=== PATIENT | female | born 1970 | race Caucasian/White ===

== ENCOUNTER 2018-11-23 06:25 | Observation (INO) ==
--- NOTE | 2018-11-17 10:49 | Anesthesiology Consultation ---
Date of Service November 17, 2018 Assessment & Plan (1) Encounter for pre-operative examination: Chart Review Chart Review: Acceptable Risk for Surgery and Patient NOT seen in Pre Admission Testing History Surgery Operation Date: 11/23/18 08:00 Proposed Procedures p A-Flutter with Mapping with Anesthesia - Dina Reese DO Height/Weight Height: 5 ft 9 in Weight: 142.882 kg Allergies Allergy/AdvReac Type Severity Reaction Status Date / Time hydrocodone [From Vicodin] Allergy Severe THROAT Verified 11/17/18 07:58 SWELLING promethazine [From Phenergan] Allergy Unknown Verified 11/17/18 07:58 sulfamethoxazole Allergy Unknown Verified 11/17/18 07:58 [From Bactrim] trimethoprim [From Bactrim] Allergy Unknown Verified 11/17/18 07:58 Medications Home Medications Medication Instructions Recorded Confirmed Last Taken albuterol sulfate [Ventolin HFA] 2 puff INHALATION QID PRN 11/17/18 11/17/18 Unknown aspirin [Aspirin Low Dose] 81 mg PO HS 11/17/18 11/17/18 Unknown atorvastatin [Lipitor] 20 mg PO QAM 11/17/18 11/17/18 Unknown bupropion HCl [Wellbutrin XL] 300 mg PO QAM 11/17/18 11/17/18 Unknown buspirone 5 mg PO BID 11/17/18 11/17/18 Unknown clonazepam [Klonopin] 1 mg PO TID PRN 11/17/18 11/17/18 Unknown fenofibrate micronized 134 mg PO QAM 11/17/18 11/17/18 Unknown lamotrigine [Lamictal] 200 mg PO BID 11/17/18 11/17/18 Unknown levothyroxine 125 mcg PO QAM 11/17/18 11/17/18 Unknown metoprolol tartrate 50 mg PO BID 11/17/18 11/17/18 Unknown milnacipran [Savella] 100 mg PO BID 11/17/18 11/17/18 Unknown mometasone-formoterol [Dulera] 2 puff INHALATION BID 11/17/18 11/17/18 Unknown montelukast [Singulair] 10 mg PO PM 11/17/18 11/17/18 Unknown omeprazole 20 mg PO QAM 11/17/18 11/17/18 Unknown sertraline [Zoloft] 100 mg PO QAM 11/17/18 11/17/18 Unknown topiramate [Topamax] 200 mg PO BID 11/17/18 11/17/18 Unknown trazodone 200 mg PO HS 11/17/18 11/17/18 Unknown ziprasidone HCl 60 mg PO HS 11/17/18 11/17/18 Unknown Past Medical History Medical History Anxiety Asthma Atrial fibrillation A.FIB AND A.FLUTTER Bipolar disorder Bronchitis FREQUENT Chronic back pain Chronic kidney disease STAGE 3 KIDNEY DISEASE. FOLLOWS WITH DR. ISAC SANON Chronic obstructive pulmonary disease Degenerative disc disease Depression Diabetes mellitus, type 2 NO MEDS Fibromyalgia GERD (gastroesophageal reflux disease) History of cardioversion DECEMBER 2017. [facility]. Hyperlipidemia Hypertension Hypothyroidism Kidney stones CURRENT LEFT SIDE Migraine BOTOX SHOTS Morbid obesity Osteoarthritis Peripheral neuropathy BILATERAL FEET Post traumatic stress disorder Sleep apnea NON COMPLIANT WITH CPAP Past Family History Family History Father Family history of diabetes mellitus Past Surgical History Surgical History History of bilateral tubal ligation History of cardiac cath [facility]. NO STENTS, UNSURE OF YEAR. History of cholecystectomy OPEN History of colonoscopy History of dilatation and curettage WITH UTERINE THERMAL ABLATION History of herniorrhaphy INCISIONAL HERNIA REPAIR History of repair of rotator cuff RIGHT Social History Smoking Status: Former smoker tobacco type: cigarettes Do You Dip or Chew Tobacco: No Smoking End Date: QUIT 2011 Hx Alcohol Use: No Hx Substance Use: No Testing Electrocardiogram Date: 10/19/18 Findings: + NSR @ (63) Echocardiogram Date: 01/11/18 EF: 61% Indication: new onset A-flutter. No LV segmental wall motion abnormalities. LV diastolic function is normal. Nondilated cardiac chambers. The right ventricular systolic function is normal. Proximal inferior vena cava is normal. Normal IVC size and collapsibility with sniff indicates a normal right atrial pressure of 3 mmHg. No significant valvular disease is present. No evidence of pulmonary hypertension. Stress Test Date: 11/01/18 Type: nuclear Normal pharmacologic Cardiolite stress test without evidence of infarct or ischemia. Negative pharmacologic stress EKG for ischemia. Normal post stress ejection fraction. Normal wall motion analysis. Laboratory Results 11/08/18 SODIUM: 140 POTASSIUM: 4.0 CHLORIDE: 106 CO2: 21 BUN: 16 CREATININE: 1.40 GLUCOSE: 83
[~2018-11-23 06:25] MED LIST: LR 15ML/HR IV SCH
[2018-11-23] MEDS ORDERED: LIDOCAINE HCL 1% 20 ML VIAL ONE (07:24)
[2018-11-23] MEDS ORDERED: REMIFENTANIL HCL 1 MG VIAL ONE ×2 (07:40→07:41)
[2018-11-23] MEDS ORDERED: PROPOFOL IV EMULSION 10 MG/ML 100 ML VIAL IV ONE (07:41)
--- NOTE | 2018-11-23 07:44 | History & Physical Bridge Note ---
Date of Service November 23, 2018 History & Physical Bridge Note I have examined the patient, reviewed the History & Physical and in the interval since the performance of the History & Physical I have noted the following changes of clinical significance: no changes noted
[2018-11-23] MEDS ORDERED: PROPOFOL IV EMULSION 10 MG/ML 20 ML VIAL IV ONE (07:55)
[2018-11-23] MEDS ORDERED: LIDOCAINE HCL 2% 2 ML VIAL/AMP(20MG/ML) INFIL ONE ×2 (07:55→09:01)
[2018-11-23] MEDS ORDERED: fentaNYL citrate 100 MCG/2 ML VIAL ONE ×2 (07:55)
[2018-11-23] MEDS ORDERED: SUCCINYLCHOLINE CHLORIDE 20 MG/ML 10 ML VIAL ONE (07:55)
[2018-11-23] MEDS ORDERED: MIDAZOLAM HCL 1 MG/ML 2ML VIAL ONE ×2 (07:55→09:10)
[2018-11-23] MEDS ORDERED: ROCURONIUM BROMIDE 10 MG/ML 5 ML VIAL ONE (07:55)
[2018-11-23] MEDS ORDERED: KETAMINE HCL INJ 50 MG/ML 10 ML VIAL ONE (08:13)
[2018-11-23] MEDS ORDERED: ATROPINE SULFATE 0.1 MG/ML 10ML SYR IV PRN (08:23)
[2018-11-23] MEDS ORDERED: ePHEDrine sulfate 50 MG/ML AMP IV PRN (08:23)
[2018-11-23] MEDS ORDERED: HEPARIN SOD (PORCINE) 1000 UNIT/ML 10 ML VIAL ONE (08:33)
[2018-11-23] MEDS ORDERED: PHENYLEPHRINE 100MCG/ML 5ML SYR ONE (09:29)
[2018-11-23] MEDS ORDERED: ePHEDrine sulfate 50 MG/ML SYR ONE (09:29)
--- NOTE | 2018-11-23 10:09 | Operative Report ---
Post Operative Report Pre & Post Diagnosis paroxysmal atrial flutter Operation Date: 11/23/18 08:00 <No data on this case meets the specified criteria> Procedure Operation Date: 11/23/18 08:00 Actual Procedures p EPS + Ablation for SVT Flutter(Not Applicable) - DO edenilson Rocha 3D Mapping (Carto)(Not Applicable) - DO edenilson Rocha LA Pacing (Add-On)(Not Applicable) - Dina Reese DO Surgeon Dina Reese DO Materials Handling Coordinator none Estimated Blood Loss 5 Findings Consistent with Post-Op Diagnosis Specimens none Description of Procedure see official report I attest to the content of the Intraoperative Record and any orders documented therein. Any exceptions are noted below.
[2018-11-23] MEDS ORDERED: clonazePAM 1 MG TAB PO PRN (10:11)
[2018-11-23] MEDS ORDERED: ALBUTEROL HFA 8 GM INHALER INH PRN (10:11)
--- NOTE | 2018-11-23 10:19 | Discharge Summary ---
Date of Service November 23, 2018 Admission HPI Pt admitted for elective atrial flutter ablation; underwent procedure without any complications. Her metoprolol was lowered to 25mg BID and she was monitored overnight and discharged home. Admission Exam Per Admitting Provider aaox3, NAD NC/AT, EOMI Supple No JVD Nrl S1/S2, No murmur CTA b/l no w/r/r soft nt/nd no LE edema b/l skin intact no focal deficits Principal Diagnosis Principal Diagnosis paroxsymal atrial flutter Discharge Exam aaox3, NAD NC/AT, EOMI Supple No JVD Nrl S1/S2, No murmur CTA b/l no w/r/r soft nt/nd no LE edema b/l skin intact no focal deficits b/l groins soft Non tender no hematoma Discharge Data Allergies Allergy/AdvReac Type Severity Reaction Status Date / Time hydrocodone [From Vicodin] Allergy Severe THROAT Verified 11/23/18 07:12 SWELLING promethazine [From Phenergan] Allergy Unknown Verified 11/23/18 07:12 sulfamethoxazole Allergy Unknown Verified 11/23/18 07:12 [From Bactrim] trimethoprim [From Bactrim] Allergy Unknown Verified 11/23/18 07:12 Procedures Performed Operation Date: 11/23/18 08:00 Actual Procedures p EPS + Ablation for SVT Flutter(Not Applicable) - DO edenilson Rocha 3D Mapping (Carto)(Not Applicable) - DO edenilson Rocha LA Pacing (Add-On)(Not Applicable) - Dina Reese DO Ordered Studies 11/23/18 07:30 EP Lab Images for PACS ONCE Hospital Course (1) Atrial flutter: Total Time Total Time Spent Total Time Spent (In Minutes): 30 Total Time Includes: Examination of the Patient and Medication Reconciliation Discharge Plan Discharge Items Patient Disposition: Home - Self-Care Reason For Visit: Atrial Flutter Discharge Diagnosis: atrial flutter Condition: Good Discharge Goals: Improve function Activity: As commented below Activity Comment: no heavy lifting or squating for 1 week Lifting: No more than 10 pounds Driving/Machine Use: Resume 1 day after discharge Non-emergency contact: Route Delivery Service Driver Call non-emergency contact if: you have any medication questions Follow-up/Referrals: PCP,NO [Primary Care Provider] - Diet: Heart Healthy Addtl Provider Instructions: none Prescriptions: New metoprolol tartrate 50 mg Tablet 25 mg PO BID Qty: 30 RF: 0 Continue buspirone 5 mg Tablet 5 mg PO BID RF: 0 atorvastatin [Lipitor] 20 mg Tablet 20 mg PO QAM RF: 0 lamotrigine [Lamictal] 200 mg Tablet 200 mg PO BID RF: 0 sertraline [Zoloft] 100 mg Tablet 100 mg PO QAM RF: 0 clonazepam [Klonopin] 1 mg Tablet 1 mg PO TID PRN (Reason: Anxiety) RF: 0 aspirin [Aspirin Low Dose] 81 mg Tablet,Delayed Release (Dr/Ec) 81 mg PO HS RF: 0 fenofibrate micronized 134 mg Capsule 134 mg PO QAM RF: 0 trazodone 100 mg Tablet 200 mg PO HS RF: 0 levothyroxine 125 mcg Tablet 125 mcg PO QAM RF: 0 omeprazole 20 mg Capsule,Delayed Release(Dr/Ec) 20 mg PO QAM RF: 0 montelukast [Singulair] 10 mg Tablet 10 mg PO PM RF: 0 topiramate [Topamax] 200 mg Tablet 200 mg PO BID RF: 0 ziprasidone HCl 60 mg Capsule 60 mg PO HS RF: 0 bupropion HCl [Wellbutrin XL] 300 mg Tablet Extended Release 24 Hr 300 mg PO QAM RF: 0 milnacipran [Savella] 100 mg Tablet 100 mg PO BID RF: 0 albuterol sulfate [Ventolin HFA] 90 mcg/actuation Hfa Aerosol Inhaler 2 puff INHALATION QID PRN (Reason: SOB/WHEEZING) RF: 0 mometasone-formoterol [Dulera] 200-5 mcg/actuation Hfa Aerosol Inhaler 2 puff INHALATION BID RF: 0 Discontinued metoprolol tartrate 50 mg Tablet 50 mg PO BID RF: 0 Stand-Alone Forms: [facility], [facility] Discharge Orders: Discharge Order (Routine); Ordered 11/24/18 Ordered By: Dina Reese Admission Data Admit Date/Time: 11/23/18 10:09 Attending Provider: Dina Reese Admit Provider: Dina Reese Primary Care Provider: PCPBRIANA Service: Telemetry
--- NOTE | 2018-11-23 11:07 | Anesthesiology Progress Note ---
Date of Service November 23, 2018 Anesthesia Post Procedure Vital Signs Vital Signs: Temp Pulse Resp BP Pulse Ox 11/23/18 06:52 36.5 C 65 18 107/53 L 99 Notes Mental Status: alert / awake / arousable Patient Amnestic to Procedure: Yes Nausea / Vomiting: adequately controlled Pain: adequately controlled Airway Patency, RR, SpO2: stable & adequate BP & HR: stable & adequate Hydration State: stable & adequate Anesthetic Complications: no major complications apparent and Pt Satisfied with anesthetic care
[2018-11-23] MEDS: ACETAMINOPHEN 325 MG TAB PO PRN (11:21)
[2018-11-23] MEDS ORDERED: ONDANSETRON INJ 2 MG/ML 2 ML VIAL ONE (11:48)
--- NOTE | 2018-11-23 12:47 | Operative Report ---
DATE OF OPERATION: 11/23/2018 PREOPERATIVE DIAGNOSIS: Paroxysmal atrial flutter. POSTOPERATIVE DIAGNOSES: Paroxysmal atrial flutter in addition to bidirectional block along the cavotricuspid isthmus. SURGEON: Dina Reese DO. ASSISTANTS: None. ANESTHESIA: Monitored anesthetic care administered via Anesthesiology, a total of 2 mg of Versed, 50 mcg of fentanyl, 30 mg of ketamine, 680 mg of propofol, 600 mcg of remifentanil. Please defer to Anesthesiology notes for complete details. IV FLUIDS: 400 mL. BLOOD LOSS: Less than 5 mL. URINE OUTPUT: Not applicable. SPECIMENS: None. FINDINGS: See below. DRAINS: None. INDICATIONS: This is a 48-year-old female with past medical history for paroxysmal atrial flutter, initially diagnosed in 12/2017 during an acute GI illness. She was placed on Coumadin upon discharge. They were trying to get flecainide, but due to her prolonged QT from interactions with a lot of her psychiatric medicines, the flecainide was stopped and she was ultimately discharged on calcium channel eduar and beta-eduar. After hospital discharge in the spring/summer of 2017, her Coumadin was stopped and she was placed on aspirin and her calcium channel was stopped and she was just on beta-eduar. However, in the fall, she started having recurrent episodes, some flutter, maybe a little bit of fib, so she was referred to Electrophysiology. ADDITIONAL PAST MEDICAL HISTORY: Chronic kidney disease stage III, morbid obesity, hypothyroidism, obstructive sleep apnea not on CPAP, bipolar affective disorder, migraines, former tobacco user, COPD, ulcerative colitis, chronic back pain. She does carry in her medical chart history of diabetes; however, she is not on any medicines and her hemoglobin A1c is less than 6, so therefore her CHADS2-VASc score is really only 1 for female. Due to the recurrent atrial arrhythmias and symptoms and limited ability to give antiarrhythmics, we decided that we would try an atrial flutter ablation in hopes that would be enough to calm the arrhythmias that she is feeling and keep that doing okay. CONSENT: Consent was obtained prior to the patient going into the Electrophysiology Lab. The patient was informed of the risks, benefits and alternatives to the procedure. Risks include but not limited to sudden cardiac , cardiac arrhythmias, cerebrovascular accident, myocardial infarction, injury to the blood vessels, chamber of the heart or the little traverse electrical system where she needed permanent pacemaker, bleeding and infection. The patient understood these risks and agreed to the procedure as planned. Informed consent was obtained. DESCRIPTION OF THE PROCEDURE: The patient was brought into the Electrophysiology Lab in a fasting state. She was connected to continuous child monitor. A timeout was performed to ensure patient identity and procedure correctly. The patient was prepped and draped over the bilateral groins in normal surgical standard fashion. Monitored anesthetic care was given throughout the procedure for the patient's comfort level. Davenport precautions were maintained throughout the procedure. A 10 mL of 1% lidocaine were given in the bilateral groins for local anesthesia. Then using the modified Seldinger technique, venous access was obtained in the following manner. The left femoral vein had a 7-Telugu sheath followed by a Decapolar Biosense DF curve coronary sinus catheter positioned out in the coronary sinus. A 7-Telugu sheath followed by a 20-pole Halo catheter positioned along the right atrium. The right femoral vein had an SRO sheath followed by a Biosense 4 mm ThermoCool DF curved ablation catheter. ELECTROPHYSIOLOGY FINDINGS: The baseline intervals are as follows: Sinus cycle length 880 milliseconds, DE 150 milliseconds, QRS 90 milliseconds, QT 370 milliseconds, AH 64 milliseconds, HV 72 milliseconds. With CS prox pacing 7-8 measuring the Halo distal lateral on the atrial wall, the distance was 82 milliseconds. When we paced the lateral atrial wall of Halo 2 measuring at the CS prox was 82 milliseconds. We then set up to do an ablation of this cavotricuspid isthmus, gave a series of vela about 30 seconds to 1 minute in duration at 35 an. Across the cavotricuspid isthmus, there were some ridges. I did the ablation while I was pacing CS prox at 700 milliseconds. We then assessed to see that we had cared her bidirectional block post ablation with pacing the CS prox and measuring to lateral atrial wall lateral to our line 140 milliseconds with pacing the lateral atrial wall measuring to the CS prox at 150 milliseconds. Then during our 30-minute post ablation waiting period, an electrophysiology study was performed with the following findings post ablation. Sinus cycle length 808 milliseconds, DE 154 milliseconds, QRS 92 milliseconds, QT 374 milliseconds. AH 48 milliseconds, HV 78 milliseconds. AV Wenckebach 480 milliseconds. AV node ERP 700/320 and 500/360. With right ventricular pacing, there was no VA conduction. The right ventricular ERP was 600/260 and 400/240. After 30-minute waiting period, we then confirmed that there was still bidirectional block across the cavotricuspid isthmus with the measurement being 152 milliseconds from CS prox medial to the line to lateral to the line Halo distal and 153 milliseconds measuring Halo distal to CS prox. All the sheaths and the catheters were then removed further from the heart and the body. Manual compression was used to establish hemostasis. IMPRESSION: 1. Successful bidirectional block along the cavotricuspid isthmus. 2. Normal atrioventricular john pathology. PLAN: Monitor the patient overnight, 12-lead ECG. We will decrease her metoprolol to 25 mg twice a day. No heavy lifting or squatting for 1 week. She can continue the aspirin and I will see her in our office in followup in 1 month time. I attest to the content of the Intraoperative Record and any orders documented therein. Any exception s are noted below.
[2018-11-23] MEDS: FENOFIBRATE ~ ORDER AWAITING ACTION SCH (16:12)
[2018-11-23] MEDS ORDERED: ONDANSETRON INJ 2 MG/ML 2 ML VIAL IV ONE (18:53)
[2018-11-23] MEDS ORDERED: ASPIRIN 81 MG ECTAB PO SCH (21:00)
[2018-11-23] MEDS ORDERED: TRAZODONE HCL 100 MG TAB PO SCH (21:00)
[2018-11-23] MEDS ORDERED: ZIPRASIDONE HCL 20 MG CAP PO SCH (21:00)
[2018-11-23] MEDS ORDERED: MONTELUKAST SODIUM 10 MG TABLET PO SCH (21:00)
[2018-11-23] MEDS: METOPROLOL TARTRATE 50 MG TAB PO SCH (21:08)
[2018-11-23] MEDS: TOPIRAMATE 100 MG TAB PO SCH (21:08)
[2018-11-23] MEDS: lamoTRIgine 100 MG TAB PO SCH (21:09)
[2018-11-23] MEDS: DULERA INH SCH (21:10)
[2018-11-24] MEDS: FENOFIBRATE ~ ORDER AWAITING ACTION SCH ×2 (00:26→08:15)
[2018-11-24] MEDS ORDERED: LEVOTHYROXINE SODIUM 125 MCG TABLET PO SCH (06:30)
[2018-11-24] MEDS: METOPROLOL TARTRATE 50 MG TAB PO SCH (08:07)
[2018-11-24] MEDS: TOPIRAMATE 100 MG TAB PO SCH (08:08)
[2018-11-24] MEDS: DULERA INH SCH (08:08)
[2018-11-24] MEDS: lamoTRIgine 100 MG TAB PO SCH (08:08)
[2018-11-24] MEDS: ACETAMINOPHEN 325 MG TAB PO PRN (08:14)
[2018-11-24] MEDS ORDERED: ATORVASTATIN 20 MG TAB PO SCH (09:00)
[2018-11-24] MEDS ORDERED: PANTOprazole 40 MG TAB PO SCH (09:00)
[2018-11-24] MEDS ORDERED: SERTRALINE HCL 100 MG TABLET PO SCH (09:00)
[2018-11-24] MEDS ORDERED: BuPROPion XL 300 MG TABCR PO SCH (09:00)
== END 2018-11-24 10:45 | disposition home or self-care (01) ==
LOC: 2S 06:25 → ASU 06:25